=== PATIENT | female | born 1935 | race Asian ===

== ENCOUNTER 2018-03-09 22:37 | Emergency (ER) | payer MEDICARE, OTHER ==
[~2018-03-09 22:37] MED LIST: ASPIRIN EC81 MG; CARVEDILOL12.5 MG; LIPITOR40 MG; METFORMIN HCL500 MG; MICARDIS20 MG; NORCO 5-325 TA1 EACH PO; PLAVIX75 MG; RESTASIS1 DROP OD; TOBRAMYCIN-DEXAM5 ML OPTH
[2018-03-10] MEDS ORDERED: ULTRAM50 MG PO (00:55)
== END 2018-03-10 01:09 | disposition home or self-care (01) ==
LOC: ED 22:37
DX: S32.019A Unspecified fracture of first lumbar vertebra, initial encounter for closed fracture (principal); W01.198A Fall on same level from slipping, tripping and stumbling with subsequent striking against other object, initial encounter; E11.9 Type 2 diabetes mellitus without complications; E78.00 Pure hypercholesterolemia, unspecified; I25.2 Old myocardial infarction; Z79.899 Other long term (current) drug therapy; Z79.82 Long term (current) use of aspirin; Z79.84 Long term (current) use of oral hypoglycemic drugs
CPT/HCPCS: 72100; 99283

== ENCOUNTER 2020-05-26 21:09 | Emergency (ER) | payer MEDICARE, OTHER ==
[~2020-05-26] VITALS: Ht 149.9 cm; Wt 59.0 kg
[~2020-05-26 21:09] MED LIST changes: +ULTRAM50 MG PO
[2020-05-26] MEDS ORDERED: PREDNISONE20 MG PO (21:31)
== END 2020-05-26 21:46 | disposition home or self-care (01) ==
LOC: ED 21:09
DX: L50.0 Allergic urticaria (principal); E11.9 Type 2 diabetes mellitus without complications; E78.00 Pure hypercholesterolemia, unspecified; I25.2 Old myocardial infarction; Z79.899 Other long term (current) drug therapy; Z79.84 Long term (current) use of oral hypoglycemic drugs; Z79.82 Long term (current) use of aspirin
CPT/HCPCS: 99282; J7512; Q0163

== ENCOUNTER 2021-02-22 14:58 | Emergency (ER) | payer MEDICARE, OTHER ==
[~2021-02-22] VITALS: Ht 149.9 cm; Wt 64.4 kg
[~2021-02-22 14:58] MED LIST changes: +PREDNISONE20 MG PO
--- OUTSIDE RECORDS SUMMARY | 2021-02-22 15:02 | XMS ---
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 Jakob has no Care Guidelines for this patient. Qasim VISIT COUNT (12 MO.) 2 MARY Nguyen TOTAL 2 NOTE: Visits indicate total known visits. 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
[2021-02-22] MEDS ORDERED: COZAAR25 MG PO (17:25)
[2021-02-22] MEDS ORDERED: ALENDRONATE SOD70 MG PO (17:26)
[2021-02-22] MEDS ORDERED: VITAMIN D31250 MC1 PO (17:28)
[2021-02-22] MEDS ORDERED: NITROSTAT0.4 MG SL (17:29)
--- NOTE | 2021-02-23 17:46 | EKG ---
[facility] [address] [facility] [place] [address] Signed Normal sinus rhythm Normal ECG No previous ECGs available Confirmed by DUANE PROCTOR DO ([id number]) on 02/23/2021 5:45:54 PM Electronically Signed By: DUANE PROCTOR DO 02/23/21 1746 PATIENT NAME: COLLEEN GARZA Electrocardiogram DATE OF : 35 PHYSICIAN: DUANE PROCTOR DO REPORT #: [id number] REPORT IS CONFIDENTIAL AND NOT TO BE RELEASED WITHOUT AUTHORIZATION
== END 2021-02-22 17:45 | disposition home or self-care (01) ==
LOC: ED 14:58
DX: R06.00 Dyspnea, unspecified (principal); R53.1 Weakness; E11.9 Type 2 diabetes mellitus without complications; E78.00 Pure hypercholesterolemia, unspecified; I25.2 Old myocardial infarction; Z88.5 Allergy status to narcotic agent; Z88.8 Allergy status to other drugs, medicaments and biological substances; Z79.899 Other long term (current) drug therapy; Z79.82 Long term (current) use of aspirin; Z79.84 Long term (current) use of oral hypoglycemic drugs
CPT/HCPCS: 71045; 80048; 81001; 84484; 85025; 93005; 93010; 99285-25

== ENCOUNTER 2023-09-16 05:50 | Day surgery (SDC) | payer MEDICARE, OTHER ==
[2023-09-10 13:05] VITALS: BP 155/78
[~2023-09-16] VITALS: Ht 149.9 cm; Wt 62.3 kg
--- NOTE | ~2023-09-16 | OR ---
[facility] [address] [place], [place] [address] Draft DATE OF OPERATION: 09/16/2023 SURGEON: Alexander Kelly DPM PREOPERATIVE DIAGNOSIS: Hallux valgus, left foot. POSTOPERATIVE DIAGNOSIS: Hallux valgus, left foot. HORSE TREKKING GUIDE: Nimco Rivas DPM ANESTHESIA: IV general with local block, left foot. FORKLIFT DRIVER: Flaco Mcelroy CRNA SPECIMEN TO PATHOLOGY: None. DESCRIPTION OF PROCEDURE: The patient was brought to the operating room and placed on the table in the supine position. Anesthesia Department administered IV sedation, after which a local block was given to the left foot using a total of 9 mL of 1:1 mixture of 2% lidocaine plain and 0.5% ropivacaine plain. The left leg and foot was then prepped and draped in the usual sterile manner and an Esmarch was used for hemostasis. Attention was initially directed to the dorsal/medial aspect left 1st MTP joint, where a linear longitudinal incision was made about 1 cm medial to the extensor hallucis longus tendon and 6-8 cm in length. The incision was initially full-thickness through the dermis, then deepened through subcutaneous tissue using careful dissection and cautery as necessary for hemostasis. Once to the level of deep fascia and joint capsule, the incision was deepened to bone and soft tissues reflected medially to expose the medial bony prominence at the 1st metatarsal head, which was then resected using power instrumentation, removing approximately 3 mm of bone. At this time, attention was directed to the 1st intermetatarsal space, where a lateral release was performed. The position and alignment to the hallux then assessed, and it was noted to be necessary to provide additional correction to the hallux valgus position, which was then accomplished PATIENT NAME: COLLEEN GARZA OPERATIVE REPORT DATE OF : 35 REPORT #: [id number] PHYSICIAN: ALEXANDER KELLY DPM PCP: SHAGGY KENNEDY DO REPORT IS CONFIDENTIAL AND NOT TO BE RELEASED WITHOUT AUTHORIZATION [facility] [address] [place], [place] [address] Draft with an Jose type osteotomy within the base of the proximal phalanx, left hallux, removing about a 3 mm wedge of bone medially. The lateral cortex left intact as a hinge and the osteotomy secured with a bone staple. At this time, the position and alignment to the toe was reassessed and the hallux continued to drift into a valgus position, therefore a medial capsulorrhaphy was performed removing about 3 mm section of the joint capsule along the medial 1st metatarsal head. The capsule was closed and reapproximated with 3-0 Vicryl suture. At this time, surgical site was irrigated with copious amounts of normal saline. The surgical site then closed using 3-0 Vicryl suture for the longitudinal capsular closure, 4-0 Vicryl for subcutaneous closure and skin franck for skin closure. The surgical site was then dressed with Adaptic, Betadine-soaked gauze, dry gauze, Flexicon, and Coban. Bacitracin ointment placed on the callus site at the lateral aspect, left hallux prior to placement of the dressings. The dressings were also used to splint the position to the hallux. A postoperative injection was given using 6 mL of 9:1 mixture, 2% lidocaine plain and dexamethasone phosphate 4 mg/mL. INTRAOPERATIVE COMPLICATIONS: None. ESTIMATED BLOOD LOSS: Less than 5 mL. The patient tolerated the procedure and the anesthesia well and left the operating room with vital signs stable and vascular status intact to the left foot as evidenced by hyperemia with removal of the Esmarch. Alexander Kelly DPM DFB/MODL /[id number] Copies: PATIENT NAME: COLLEEN GARZA OPERATIVE REPORT DATE OF : 35 REPORT #: [id number] PHYSICIAN: ALEXANDER KELLY DPM PCP: SHAGGY KENNEDY DO REPORT IS CONFIDENTIAL AND NOT TO BE RELEASED WITHOUT AUTHORIZATION [address] [address] Draft ~ PATIENT NAME: COLLEEN GARZA OPERATIVE REPORT DATE OF : 35 REPORT #: [id number] PHYSICIAN: ALEXANDER KELLY DPM PCP: SHAGGY KENNEDY DO REPORT IS CONFIDENTIAL AND NOT TO BE RELEASED WITHOUT AUTHORIZATION
[~2023-09-16 05:50] MED LIST changes: +ALENDRONATE SOD70 MG PO; +CARVEDILOL12.5 MG PO; +COZAAR25 MG PO; +GABAPENTIN300 MG PO; +JARDIANCE10 MG PO; +LACTATED RINGER'S 1,000 ML IV SCH; +NITROSTAT0.4 MG SL; +PROLIA60 MG/1 ML SUB-Q; +VITAMIN D31250 MC1 PO
[2023-09-16] MEDS ORDERED: fentaNYL citrate 100 MCG/2 ML VIAL ONE (06:03)
[2023-09-16] MEDS ORDERED: propofoL 200 MG/20 ML VIAL ONE (06:03)
[2023-09-16] MEDS ORDERED: KETOROLAC TROMETHAMINE 30 MG/ML VIAL ONE (06:03)
[2023-09-16] MEDS ORDERED: METOCLOPRAMIDE HCL 10 MG/2 ML SDV ONE (06:03)
[2023-09-16] MEDS ORDERED: ondansetron HCL 4 MG/2 ML VIAL ONE (06:03)
[2023-09-16] MEDS ORDERED: FAMOTIDINE 20 MG/ 2 ML VIAL ONE (06:03)
[2023-09-16] MEDS ORDERED: DEXAMETHASONE SOD PHOS 4 MG/ML VIAL ONE ×2 (06:03→06:13)
[2023-09-16] MEDS ORDERED: LACTATED RINGER'S 1,000 ML IV ONE (06:03)
[2023-09-16 06:04] VITALS: BP 145/56
[2023-09-16] MEDS ORDERED: CEPHALEXIN500 MG PO (06:11)
[2023-09-16] MEDS ORDERED: Ropivacaine HCl 0.5% 30 ML VIAL ONE (06:12)
[2023-09-16] MEDS ORDERED: LIDOCAINE HCL 2% 20 ML MDV ONE (06:12)
[2023-09-16] MEDS ORDERED: IBLOOD GLUCOSE TEST STRIP 1 EA TEST VI PRN ×2 (07:00→07:45)
[2023-09-16] MEDS ORDERED: LIDOCAINE HCL 1% 5 ML SDV INJ ONE (07:00)
[2023-09-16] MEDS ORDERED: CEFAZOLIN SODIUM 1 GM/10 ML SYR IV SCH (07:00)
[2023-09-16] MEDS ORDERED: NALOXONE HCL 0.4 MG SYR IV PRN (07:45)
[2023-09-16] MEDS ORDERED: droPERidol 5 MG/2 ML VIAL IV PRN (07:45)
[2023-09-16] MEDS ORDERED: fentaNYL citrate 50 MCG/ML SDV IV PRN (07:45)
[2023-09-16] MEDS ORDERED: MEPERIDINE HCL 25 MG/1 ML VIAL IV PRN (07:45)
[2023-09-16] MEDS ORDERED: ondansetron HCL 4 MG/2 ML VIAL IV PRN (07:45)
--- NOTE | 2023-09-16 08:56 | NUR ---
09/16/23 0856 Vickie Ibanez 0824 PT ARRIVED IN PACU SLEEPY WITH NO C/O'S. L FOOT ELEVATED ON PILLOW. 0840 XRAY'S DONE. 0845 BLOOD SUGAR 119. 0855 SLEEPY. NO C/O'S.
[2023-09-16 09:13] VITALS: BP 158/64
--- NOTE | 2023-09-16 09:29 | NUR ---
VITA 0913-PT BACK TO ROOM FROM PACU ON . RECEIVED REPORT FROM RAUL MELENDEZ. PT IS AWAKE. RESP EVEN AND UNLABORED. DENIES PAIN AND NAUSEA. NO DRAINAGE NOTED ON DRESSING. PROVIDED PT WITH WATER AND CRACKERS. FAMILY AT BEDSIDE. NO OTHER NEEDS AT THIS TIME. CALL LIGHT WITHIN REACH.
[2023-09-16 10:10] VITALS: BP 143/58
--- NOTE | 2023-09-16 11:30 | NUR ---
LE 1010-PT LAYING IN BED AWAKE. RESP EVEN AND UNLABORED. DENIES PAIN AND NAUSEA. NO DRAINAGE NOTED ON DRESSING. PT READY TO GO HOME. LE 1015-PT UP TO RESTROOM WITH 1 RN ASSIST. GAIT UNSTEADY BUT TOLERATED WELL. LE 1018-RED DRAINAGE NOTED ON DRESSING. PT BACK TO ROOM. PT GETTING DRESSED WITH FAMILY IN ROOM. LE 1022-PHONE CALL TO DR KELLY WITH AN UPDATE. STATES HE WILL COME IN AND REDRESS WOUND. LE 1040-DR KELLY IN PTS ROOM. WOUND REDRESSED. DR KELLY PLACED WALKING SHOE ON LEFT FOOT. PT TOLERATED DRESSING CHANGE WELL.
--- NOTE | 2023-09-16 11:40 | NUR ---
VITA 105Heather-WENT OVER DISCHARGE INSTRUCTIONS WITH PT AND HER DAUGHTER. ALL QUESTIONS ANSWERED. PT AMBUALTES TO WHEELCHAIR AND RIDE PROVIDED TO FRONT OF HOSPITAL WHERE DAUGHTER WAS WAITING WITH THE CAR.
--- NOTE | 2023-09-17 15:09 | EKG ---
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
== END 2023-09-16 10:55 | disposition home or self-care (01) ==
LOC: DS 05:50
PROVIDERS: ATTEND Podiatrist Foot Surgery
PROC: 0QSP04Z Reposition Left Metatarsal with Internal Fixation Device, Open Approach (ICD-10-PCS; principal; 2023-09-16 07:00)
DX: M20.12 Hallux valgus (acquired), left foot (principal); Z88.8 Allergy status to other drugs, medicaments and biological substances
CPT/HCPCS: 73630; 93005; 93010; J0690; J1100; J1885; J2405; J2704; J2765; J2795; J3010; J7121